=== PATIENT | male | born 1995 | race Caucasian/White ===

== ENCOUNTER 2018-04-18 00:45 | Emergency (ER) | payer SELFPAY ==
[~2018-04-18] VITALS: Ht 182.9 cm; Wt 81.7 kg
[~2018-04-18 00:45] MED LIST: ALBU90OI; AZIT200SU PO; CEPH250A PO; CRUTCH4 USE; Citrate Of Mag300 ML PO; DEXA4 PO; HYDACE5 PO; HYDGUAL120 PO; MAGCIT300 PO; Miralax17 GM PO; POLY17UD; PRED10; Pepcid40 MG PO; Percocet 5-3251 EACH PO; RXHYDACE PO; RXTRAM50 PO; SULTRIDS; SULTRIDS PO; Veetids 500500 MG PO; Zofran Odt8 MG SL
[2018-04-18] MEDS ORDERED: ERYT1OIN BOTHEYES (02:32)
[2018-04-18] MEDS ORDERED: Acular LS 0.4% 55 ML BOTHEYES (02:32)
== END 2018-04-18 02:46 | disposition home or self-care (01) ==
LOC: ER 00:45
DX: H16.133 Photokeratitis, bilateral (principal); Z87.891 Personal history of nicotine dependence

== ENCOUNTER 2018-06-30 12:41 | Emergency (ER) | payer SELFPAY ==
[~2018-06-30] VITALS: Ht 182.9 cm; Wt 79.4 kg
[~2018-06-30 12:41] MED LIST changes: +Acular LS 0.4% 55 ML BOTHEYES; +ERYT1OIN BOTHEYES
[2018-06-30] MEDS ORDERED: IBUP800 PO (13:35)
== END 2018-06-30 13:51 | disposition home or self-care (01) ==
LOC: ER 12:41
DX: S39.92XA Unspecified injury of lower back, initial encounter (principal); W17.89XA Other fall from one level to another, initial encounter; F17.200 Nicotine dependence, unspecified, uncomplicated
CPT/HCPCS: 72100; 72220; 99283-25

== ENCOUNTER 2020-03-17 18:10 | Emergency (ER) | payer OTHER ==
[~2020-03-17] VITALS: Ht 182.9 cm; Wt 77.1 kg
[~2020-03-17 18:10] MED LIST changes: +IBUP800 PO
== END 2020-03-17 20:01 | disposition home or self-care (01) ==
LOC: ER 18:10
DX: S43.101A Unspecified dislocation of right acromioclavicular joint, initial encounter (principal); S60.511A Abrasion of right hand, initial encounter; S80.212A Abrasion, left knee, initial encounter; V86.56XA Driver of dirt bike or motor/cross bike injured in nontraffic accident, initial encounter
CPT/HCPCS: 72070; 73030; 99283-25

== ENCOUNTER → 2020-08-17 | Outpatient (CLI) | payer OTHER | END | disposition home or self-care (01) | LOC: LAB SHORT 13:03 → LAB EV 13:03 | DX: J06.9 Acute upper respiratory infection, unspecified (principal); Z20.828 Contact with and (suspected) exposure to other viral communicable diseases | CPT/HCPCS: U0003 ==

== ENCOUNTER 2024-07-13 14:51 | Emergency (ER) | payer OTHER ==
[~2024-07-13] VITALS: Ht 182.9 cm; Wt 86.2 kg
[2024-07-13] MEDS ORDERED: ESOM20 PO (15:33)
[2024-07-13 15:55] LABS: BASOPHILS ABSOLUTE AUTO 0.08 K/mm3 (0.00-0.23); BASOPHILS PERCENT AUTO 1 % (0-2); EOSINOPHILS ABSOLUTE AUTO 0.02 K/mm3 (0.00-0.68); EOSINOPHILS PERCENT AUTO 0 % (0-6); Hematocrit 49.8 % (37.0-53.0); Hemoglobin 17.3 g/dL (13.5-17.5); IMMATURE GRAN ABSOLUTE AUTO 0.02 K/mm3 (0.00-0.10); IMMATURE GRAN PERCENT AUTO 0 % (0-1); LYMPHOCYTES ABSOLUTE AUTO 1.38 K/mm3 (0.84-5.20); LYMPHOCYTES PERCENT AUTO 17 % (21-46); MONOCYTES ABSOLUTE AUTO 0.45 K/mm3 (0.16-1.47); MONOCYTES PERCENT AUTO 6 % (4-13); Mean Corpuscular HGB 31.2 pg (26.0-34.0); Mean Corpuscular HGB Conc 34.7 g/dL (31.5-36.5); Mean Corpuscular Volume 90 fL (80-100); NEUTROPHILS ABSOLUTE AUTO 6.22 K/mm3 (1.96-9.15); NEUTROPHILS PERCENT AUTO 76 % (41-73); Platelet Count 249 K/mm3 (150-400); RDW Coefficient Variation 11.9 % (11.7-14.2); RDW Standard Deviation 39.1 fL (35.1-46.3); Red Blood Cell Count 5.54 M/mm3 (4.30-5.90); White Blood Cell Count 8.17 K/mm3 (4.00-11.30)
[2024-07-13 16:16] LABS: Albumin, Blood 4.8 g/dL (3.4-5.0); Albumin/Globulin Ratio 1.2 (0.8-1.8); Bilirubin, Total 1.4 mg/dL (0.1-1.0); Bun/Creatinine Ratio 13.2 (12.0-20.0); Calcium, Blood 10.4 mg/dL (8.5-10.1); Creatinine, Blood 0.91 mg/dL (0.60-1.20); Potassium, Blood 4.2 mmol/L (3.5-5.5); Total Protein, Blood 8.8 g/dL (6.4-8.2)
[2024-07-13 16:21] VITALS: BP 149/91
[2024-07-13] MEDS ORDERED: Toprol Xl25 MG PO (16:44)
== END 2024-07-13 16:50 | disposition home or self-care (01) ==
LOC: ER 14:51
PROVIDERS: Emergency Medicine
DX: I49.3 Ventricular premature depolarization (principal); Z79.899 Other long term (current) drug therapy
CPT/HCPCS: 71046; 80053; 83735; 85025; 93005; 93010; 99285-25

== ENCOUNTER 2025-06-06 14:58 | Emergency (ER) | payer OTHER ==
[~2025-06-06] VITALS: Ht 182.9 cm; Wt 90.7 kg
[~2025-06-06 14:58] MED LIST changes: +ESOM20 PO; +Toprol Xl25 MG PO
[2025-06-06] MEDS ORDERED: NS 1,000 ML IV SCH (15:30)
[2025-06-06 16:08] LABS: BASOPHILS ABSOLUTE AUTO 0.05 K/mm3 (0.00-0.23); BASOPHILS PERCENT AUTO 1 % (0-2); EOSINOPHILS ABSOLUTE AUTO 0.01 K/mm3 (0.00-0.68); EOSINOPHILS PERCENT AUTO 0 % (0-6); Hematocrit 42.4 % (37.0-53.0); Hemoglobin 14.7 g/dL (13.5-17.5); IMMATURE GRAN ABSOLUTE AUTO 0.01 K/mm3 (0.00-0.10); IMMATURE GRAN PERCENT AUTO 0 % (0-1); LYMPHOCYTES ABSOLUTE AUTO 1.22 K/mm3 (0.84-5.20); LYMPHOCYTES PERCENT AUTO 14 % (21-46); MONOCYTES ABSOLUTE AUTO 0.61 K/mm3 (0.16-1.47); MONOCYTES PERCENT AUTO 7 % (4-13); Mean Corpuscular HGB Conc 34.7 g/dL (31.5-36.5); Mean Corpuscular Volume 87 fL (80-100); NEUTROPHILS ABSOLUTE AUTO 6.85 K/mm3 (1.96-9.15); NEUTROPHILS PERCENT AUTO 78 % (41-73); NRBC ABSOLUTE 0.00 K/mm3 (0.00-0.02); NRBC Auto 0.0 /100 WBC (0.0-0.2); Platelet Count 250 K/mm3 (150-400); RDW Coefficient Variation 13.2 % (11.7-14.2); RDW Standard Deviation 42.3 fL (35.1-46.3)
[2025-06-06 16:22] LABS: Alanine Aminotransfer (ALT/SGP 95.0 U/L (12-78); Albumin, Blood 4.2 g/dL (3.4-5.0); Albumin/Globulin Ratio 1.2 (0.8-1.8); Anion Gap 9.0 mmol/L (3-11); Aspartate Aminotrans (AST/SGOT 41.0 U/L (12-37); Bilirubin, Total 1.0 mg/dL (0.1-1.0); Blood Urea Nitrogen 6.0 mg/dL (8-24); CO2, Blood 26.0 mmol/L (21-32); Calcium, Blood 9.2 mg/dL (8.5-10.1); Chloride, Blood 109.0 mmol/L (98-108); Creatinine, Blood 0.79 mg/dL (0.60-1.20); Globulin, Blood 3.6 g/dL (2.2-4.0); Glucose, Blood 99.0 mg/dL (70-99); Potassium, Blood 3.9 mmol/L (3.5-5.5); Sodium, Blood 140.0 mmol/L (136-145); Total Protein, Blood 7.8 g/dL (6.4-8.2)
[2025-06-06 18:40] VITALS: BP 138/67
== END 2025-06-06 18:49 | disposition home or self-care (01) ==
LOC: ER 14:58
PROVIDERS: Student in an Organized Health Care Education/Training Program
DX: R07.89 Other chest pain (principal); F10.90 Alcohol use, unspecified, uncomplicated
CPT/HCPCS: 71046; 80053; 83690; 84484; 85025; 93005; 93010; 99285-25; J7030